=== PATIENT | male | born 1945 | race Caucasian/White ===

== ENCOUNTER 2024-08-13 12:29 | Day surgery (SDC) | payer MEDICARE, OTHER ==
[~2024-08-13] VITALS: Ht 170.2 cm; Wt 61.7 kg
[~2024-08-13 12:29] MED LIST: Lactated Ringer's 1,000 ML IV ONE; Vitamin B-12100 MCG PO; propofoL 50 ML IV ONE
[2024-08-13] MEDS ORDERED: Lactated Ringer's 1,000 ML IV ONE (13:02)
[2024-08-13 15:05] VITALS: BP 100/62
== END 2024-08-13 15:05 | disposition home or self-care (01) ==
LOC: ORSCSDS 12:29
PROVIDERS: Surgery
PROC: 0DB68ZX Excision of Stomach, Via Natural or Artificial Opening Endoscopic, Diagnostic (ICD-10-PCS; principal; 2024-08-13 13:45)
DX: R94.8 Abnormal results of function studies of other organs and systems (principal); K29.70 Gastritis, unspecified, without bleeding; Q39.6 Congenital diverticulum of esophagus; K21.9 Gastro-esophageal reflux disease without esophagitis; R12 Heartburn; R73.03 Prediabetes; Z87.891 Personal history of nicotine dependence
CPT/HCPCS: 82947; 88305; 88342; J2704; J7120